=== PATIENT | male | born 1950 | race Caucasian/White ===

== ENCOUNTER 2019-06-02 19:55 | Inpatient (IN) | payer OTHER ==
[~2019-06-02] VITALS: Ht 180.3 cm; Wt 143.8 kg
--- NOTE | 2019-06-02 19:57 | NUR ---
Dr. Burnham examining patient.
[2019-06-02] MEDS ORDERED: MORPHINE SULFATE 4 MG/ML SYR IVP ONE (20:00)
[2019-06-02] MEDS ORDERED: ALBUTEROL SULFATE/IPRATROPIU 3 ML SOL IH ONE ×2 (20:00→21:00)
--- NOTE | 2019-06-02 20:03 | NUR ---
PT CAROLYNE ALS. TAKEN TO BED 1
--- NOTE | 2019-06-02 20:05 | NUR ---
Respiratory Therapist at bedside for respiratory intervention.
[2019-06-02 20:09] VITALS: BP 113/53
[2019-06-02 20:29] LABS: BASOPHILS # (AUTO) 0.1 K/uL (0.00-0.22); BASOPHILS % (AUTO) 0.7 % (0.0-2.0); EOSINOPHILS # (AUTO) 0.5 K/uL (0-0.4); EOSINOPHILS % (AUTO) 4.3 % (0.0-4.0); HEMATOCRIT 34.3 % (36-52); HEMOGLOBIN 11.1 g/dL (12.0-18.0); LYMPHOCYTES # (AUTO) 1.8 K/uL (2.0-11.5); LYMPHOCYTES % (AUTO) 16.7 % (20.5-51.1); MEAN CORPUSCULAR HEMOGLOBIN 27 pg (27-31); MEAN CORPUSCULAR HGB CONC 32 g/dL (33-37); MEAN CORPUSCULAR VOLUME 83.9 fL (80-94); MONOCYTES # (AUTO) 0.9 K/uL (0.8-1.0); MONOCYTES % (AUTO) 8.3 % (1.7-9.3); NEUTROPHILS # (AUTO) 7.4 K/uL (1.8-7.7); PLATELET COUNT (AUTO) 168 K/uL (140-450); RED CELL DISTRIBUTION WIDTH 16.3 % (11.6-13.7); WHITE BLOOD COUNT (AUTO) 10.5 K/uL (4.8-10.8)
[2019-06-02 20:50] LABS: ALBUMIN 2.8 g/dL (3.4-5.0); ANION GAP 7.9 (8-16); CARBON DIOXIDE 32.3 mmol/L (21-32); CREATININE 1.9 mg/dL (0.6-1.3); POTASSIUM 4.2 mmol/L (3.5-5.1); TOTAL BILIRUBIN 0.2 mg/dL (0.0-1.0)
--- NOTE | 2019-06-02 21:04 | NUR ---
68 Y/O MALE BIB [facility] C/O SOB/CHEST PAIN X2 HOURS. PT STATES CHEST PAIN IS SHARP SUBSTERNAL PAIN 7/10 NON RADIATING. RESP ARE SLIGHTLY LABORED, SYMMETRICAL, LUNG SOUNDS CLEAR IN BILAT LOBES. AAOX4. GCS 15. HEALING PRESSURE ULCER NOTED ON LEFT HEEL. BOWEL SOUNDS NORMOACTIVE IN ALL QUADRANTS. CAP REFILL <3. 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 PMH: COPD, HTN, DM, HYPOTHYROIDISM, ANEMIA, MUSCLE WEAKNESS ALLERGIES: LISINOPRIL
[2019-06-02 21:15] LABS: BILIRUBIN,URINE NEGATIVE (NEGATIVE); BLOOD, URINE 1+ (NEGATIVE); LEUKOCYTE ESTERASE ,URINE NEGATIVE (NEGATIVE); NITRITE, URINE NEGATIVE (NEGATIVE); PH,URINE 5.5 (5.0-9.0); UGLUCOSE TRACE (NEGATIVE)
[2019-06-02 21:17] LABS: APPEARANCE,URINE CLOUDY (CLEAR); COLOR,URINE YELLOW (YELLOW)
[2019-06-02 21:30] LABS: RBC,URINE 0-5 /HPF (0-5); URINE AMORPHOUS URATE 2+ /HPF (None Seen); WBC,URINE NONE SEEN /HPF (0-5)
[2019-06-02] MEDS ORDERED: ONDANSETRON 4 MG/2 ML VIAL IM/IVP PRN (22:10)
[2019-06-02] MEDS ORDERED: ACETAMINOPHEN 325 MG TAB PO PRN (22:10)
[2019-06-02] MEDS ORDERED: DOCUSATE SODIUM 100 MG GELCAP PO PRN (22:10)
[2019-06-02] MEDS ORDERED: [UNRECOGNIZED DRUG - CODE] PO (22:32)
[2019-06-02] MEDS ORDERED: FURO-572 PO (22:32)
[2019-06-02] MEDS ORDERED: FLUO40CA6 PO ×2 (22:32→22:52)
[2019-06-02] MEDS ORDERED: INSU100S5 IJ (22:32)
[2019-06-02] MEDS ORDERED: ACET-2619 PO (22:32)
[2019-06-02] MEDS ORDERED: BUDE1AER IH (22:32)
[2019-06-02] MEDS ORDERED: ASPI-1822 PO (22:32)
[2019-06-02] MEDS ORDERED: INSU100S22 SUBQ (22:32)
[2019-06-02] MEDS ORDERED: methylPREDNISolone SS 125 MG/2 ML VIAL IVP ONE (22:40)
[2019-06-02] MEDS ORDERED: DEXTROSE 50% 50 ML SYR IVP PRN (22:40)
[2019-06-02] MEDS ORDERED: AZITHROMYCIN 500 MG in DEXTROSE 5% 250 ML IV ONE (22:40)
--- NOTE | 2019-06-02 22:55 | NUR ---
ADMITTED 68 Y/O MALE WITH DX OF CHEST PAIN. NO SOB NOTED. ON 3L OF O2 VIA NC WITH O2 SAT OF 97%. TELE MONITOR IN PLACE. WITH IV HEPLOCK ON LAC AND LEFT HAND 20 GAUGE. INTACT AND PATENT. LEFT EYE BLINDNESS. RIGHT EYE CATARACT. RIGHT LEG AMPUTATED. LEFT TOES AMPUTATED. LOW BED AND BED ALARM ACTIVATED. CALL LIGHT WITHIN REACH. WILL CONTINUE TO MONITOR.
--- NOTE | 2019-06-02 23:00 | NUR ---
Patient will be admitted to care of [facility]. Admited to TELE. Will go to room 128A. Belongings list completed. Report to YARITZA RODRIGUEZ.
[2019-06-02 23:02] LABS: BARBITURATE, URINE NEG. ng/ml (NEG <=200); BENZODIAZEPINE, URINE NEG. ng/mL (NEG <=200); CANNABINOID, URINE NEG. ng/mL (NEG <=50); COCAINE, URINE NEG. ng/mL (NEG <=300); OPIATE, URINE NEG. ng/mL (NEG <=2000); PHENCYCLIDINE SCREEN,URINE NEG. ng/mL (NEG <=25)
[2019-06-02 23:05] LABS: PROTHROMBIN TIME 9.7 secs (10.8-13.4)
[2019-06-02] MEDS ORDERED: NITROGLYCERIN 0.4 MG TAB SL PRN (23:10)
[2019-06-02] MEDS ORDERED: NITROGLYCERIN 0.4 MG TAB SL ONE ×2 (23:10→23:12)
[2019-06-02] MEDS ORDERED: ASPIRIN 325 MG TAB PO ONE (23:15)
[2019-06-02] MEDS ORDERED: hePARIN / DEXT 5% PREMIX 250 ML IV SCH (23:30)
[2019-06-02] MEDS ORDERED: HEPARIN PER PHARMACY MC PRN (23:30)
[2019-06-02] MEDS ORDERED: AZITHROMYCIN 500 MG INJ VIAL IV ONE (23:33)
[2019-06-02] MEDS ORDERED: cefTRIAXone 500 MG VIAL ONE (23:36)
--- NOTE | 2019-06-02 23:39 | NUR ---
PATIENT IN SEMI FOWLERS POSITION. AWAKE. C/O CHEST PAIN. DR GOLD SEEN THE PATIENT AT BEDSIDE. ORDERED NITRO SL STAT. ADMINISTERED NITROGLYCERIN SL. TOLERATED WELL. NO SOB NOTED. CALL LIGHT WITHIN REACH. WILL CONTINUE TO MONITOR.
[2019-06-02] MEDS: NACL 0.9% 1,000 ML IV SCH (23:41)
--- NOTE | 2019-06-03 00:50 | NUR ---
PATIENT ASKING FOR BREATHING TX PER PATIENT HIS HAVING A HARD TIME BREATHING. CHECK PATIENT SPO2 PATIENT SATING 97% ON 3L NC O2. AUSCULTATE LUNG SOUND HEARD WHEEZES THROUGHOUT BILATERALLY. NOTIFIED RESPIRATORY FOR PATIENT REQUEST BREATHING TX. WILL CONTINUE TO MONITOR.
--- NOTE | 2019-06-03 01:35 | NUR ---
PAGED RESPIRATORY AGAIN FOR PATIENT REQUEST FOR BREATHING TX. PATIENT RR 28BPM SPO2 97% ON 3L NC O2.
[2019-06-03] MEDS: ALBUTEROL SULFATE/IPRATROPIU 3 ML SOL IH PRN ×3 (01:42→16:50)
[2019-06-03] MEDS ORDERED: MAG SULF 2000 MG/WATER PREMIX 50 ML IV ONE (03:20)
[2019-06-03 04:00] VITALS: BP 133/56
--- NOTE | 2019-06-03 05:25 | NUR ---
ADMINISTERED MAG SULFATE 2GM PER DR. GOLD'S ORDER. PER IT WILL HELP PATIENT BREATH BETTER. WILL CONTINUE TO MONITOR.
[2019-06-03] MEDS ORDERED: FUROSEMIDE 20 MG/2 ML VIAL IVP ONE (05:35)
[2019-06-03] MEDS: INSULIN LISPRO SLIDING SCALE 100 UNITS/ML VIAL SUBQ PRN ×2 (06:12→21:45)
[2019-06-03] MEDS ORDERED: LEVOTHYROXINE SODIUM 350 MCG PO SCH (06:30)
[2019-06-03 06:33] LABS: CHOL/HDL RATIO 5.5 (1-4.5)
[2019-06-03] MEDS: BLOOD GLUCOSE MONITORING 1 DEV DEV FS SCH ×4 (06:36→21:36)
--- NOTE | 2019-06-03 06:40 | NUR ---
DR. CASAS ASKED ME TO CALL RESPIRATORY TO GIVE PATIENT BREATHING TX. ASSESSED PATIENT. PATIENT IS HAVING SHORTNESS OF BREATH, RR 27BPM SPO2 96% ON 3L NC O2. CALLED RESPIRATORY AND NOTIFIED. WILL CONTINUE TO MONITOR
[2019-06-03] MEDS: ALBUTEROL SULFATE/IPRATROPIU 3 ML SOL IH SCH ×3 (07:15→19:00)
--- NOTE | 2019-06-03 07:15 | NUR ---
ENDORSEMENT GIVEN AT BEDSIDE TO AM SHIFT RN FOR CONTINUITY OF CARE. NO SOB NOTED. DENIES PAIN. PATIENT IS STABLE.
--- NOTE | 2019-06-03 07:16 | NUR ---
RECEIVED REPORT FROM ROLL TRUCKER NURSE YARITZA FOR CONTINUITY OF CARE. PT IN STABLE CONDITION. RESPIRATIONS EVEN AND UNLABORED, 02 3L VIA NC. IV INTACT AND PATENT. SAFETY MEASURES IN PLACE. BED IN LOW POSITION. BED ALARM ON. CALL LIGHT AT BEDSIDE. WILL CONTINUE TO MONITOR.
[2019-06-03] MEDS: BUDESONIDE 0.5 MG/2 ML NEBU INH SCH ×2 (07:33→19:30)
[2019-06-03 08:00] VITALS: BP 124/52
--- NOTE | 2019-06-03 08:55 | NUR ---
PATIENT HAS BEEN SCREENED AND CATEGORIZED MODERATE NUTRITION RISK. PATIENT WILL BE SEEN WITHIN 3-5 DAYS OF ADMISSION. 06/05/19 06/07/[address]
[2019-06-03] MEDS ORDERED: NON-FORMULARY ITEM (Budesonide/Formoterol Fumarate* (Symbicort 160-4.5 Mcg Inhaler*) 2 PUF IH SCH (09:00)
--- NOTE | 2019-06-03 09:12 | NUR ---
PT OFF UNIT FOR CT CHEST W/O CONTRAST. PT IN STABLE CONDITION.
--- NOTE | 2019-06-03 09:30 | NUR ---
PT BACK ON UNIT IN STABLE CONDITION. WILL CONTINUE TO MONITOR. BED IN LOW POSITION. CALL LIGHT AT BEDSIDE.
[2019-06-03] MEDS: FUROSEMIDE 20 MG TAB PO SCH ×2 (09:50→21:17)
[2019-06-03] MEDS: ASPIRIN 81 MG TAB.CHEW PO SCH (09:50)
[2019-06-03] MEDS: FLUoxetine 10 MG CAP PO SCH (09:51)
[2019-06-03] MEDS: FERROUS SULFATE 325 MG TABEC PO SCH ×2 (09:52→17:18)
--- NOTE | 2019-06-03 09:52 | NUR ---
QUIANA HALE AT BEDSIDE FOR CONSULTATION. PT IN STABLE CONDITION.
[2019-06-03 10:03] LABS: BASOPHILS % (AUTO) 0.2 % (0.0-2.0); EOSINOPHILS % (AUTO) 0.2 % (0.0-4.0); HEMATOCRIT 32.8 % (36-52); HEMOGLOBIN 10.6 g/dL (12.0-18.0); LYMPHOCYTES # (AUTO) 0.3 K/uL (2.0-11.5); LYMPHOCYTES % (AUTO) 2.6 % (20.5-51.1); MEAN CORPUSCULAR HEMOGLOBIN 28 pg (27-31); MEAN CORPUSCULAR HGB CONC 32 g/dL (33-37); MEAN CORPUSCULAR VOLUME 85.2 fL (80-94); MONOCYTES # (AUTO) 0.1 K/uL (0.8-1.0); NEUTROPHILS # (AUTO) 9.4 K/uL (1.8-7.7); PLATELET COUNT (AUTO) 144 K/uL (140-450); RED BLOOD CELL COUNT(AUTO) 3.85 MIL/uL (4.20-6.10); WHITE BLOOD COUNT (AUTO) 9.8 K/uL (4.8-10.8)
[2019-06-03] MEDS: HYDRAGUARD CREAM TP SCH (10:05)
[2019-06-03 11:25] LABS: ANION GAP 17.1 (8-16); CARBON DIOXIDE 24.2 mmol/L (21-32); CREATININE 2.4 mg/dL (0.6-1.3); MAGNESIUM 1.8 mg/dL (1.8-2.4); PHOSPHORUS 2.5 mg/dL (2.5-4.9); POTASSIUM 5.3 mmol/L (3.5-5.1)
--- NOTE | 2019-06-03 11:33 | NUR ---
CHANGED AFTER URINATION. PT TOLERATED WELL. BED IN LOW POSITION. BED ALARM ON. CALL LIGHT AT BEDSIDE. WILL CONTINUE TO MONITOR.
[2019-06-03 12:00] VITALS: BP 132/49
--- NOTE | 2019-06-03 13:00 | NUR ---
PT EATING LUNCH AT THIS TIME. PT ORIENTED TO TRAY. BED IN LOW POSITION. BED ALARM ON. CALL LIGHT AT BEDSIDE. WILL CONTINUE TO MONITOR.
[2019-06-03 15:42] LABS: FREE T4 (FREE THYROXINE) 1.04 ng/dL (0.76-1.46); MAGNESIUM 1.9 mg/dL (1.8-2.4); PHOSPHORUS 2.5 mg/dL (2.5-4.9); THYROID STIMULATING HORMONE 2.02 uIU/mL (0.34-3.74)
[2019-06-03 16:00] VITALS: BP 139/52
[2019-06-03] MEDS ORDERED: SODIUM ZIRCONIUM CYCLOSILICATE 10 GM POWD.PACK PO SCH (16:00)
--- NOTE | 2019-06-03 16:40 | NUR ---
CALLED RT PER PT REQUEST FOR BREATHING TREATMENT. RT AT BEDSIDE. PT IN STABLE CONDITION.
--- NOTE | 2019-06-03 18:10 | NUR ---
PT LYING IN BED IN STABLE CONDITION. BED IN LOW POSITION. BED ALARM ON. CALL LIGHT AT BEDSIDE. WILL CONTINUE TO MONITOR.
--- NOTE | 2019-06-03 19:25 | NUR ---
GAVE REPORT TO CLAM PICKER NURSE TAYO FOR CONTINUITY OF CARE. PT IN STABLE CONDITION.
--- NOTE | 2019-06-03 19:35 | NUR ---
PATIENT OUT OF UNIT AT THIS TIME. PER RN, PATIENT IS IN RADIOLOGY. WILL RETURN AT LATER TIME FOR SCHEDULED BREATHING TREATMENT.
[2019-06-03 19:49] LABS: ANION GAP 10.4 (8-16); CARBON DIOXIDE 29.6 mmol/L (21-32); CREATININE 2.3 mg/dL (0.6-1.3)
[2019-06-03 20:00] VITALS: BP 139/66
--- NOTE | 2019-06-03 20:20 | NUR ---
BACK FROM RADIOLOGY VIA ON HIS OWN BED IN NO ACUTE DISTRESS.DENIES ANY DISCOMFORT @ THIS TIME.CONNECTED HIS IVF NS @ 40 ML/HR,INFUSING WELL ON HIS RIGHT HAND.A/A/O X4 BUT FORGETFUL.NOTED WITH CALEB.LEFT LEG WITH DISCOLORATION & ALL TOES WERE OLD AMPUTEE.INSTRUCTED TO USE CALL LIGHT NEEDED;WITHIN REACH.SIDE RAILS UP X3.
[2019-06-03] MEDS: ATORVASTATIN 20 MG TAB PO SCH (21:24)
[2019-06-03] MEDS: NACL 0.9% 1,000 ML IV SCH (21:29)
--- NOTE | 2019-06-03 21:35 | NUR ---
FINGER STICK BLD SUGAR 274.HUMOLOG 7 UNITS SUB Q ADM. SNACKS GIVEN.IVF INC TO 70 ML/HR INFUSING WELL.
[2019-06-03] MEDS: INSULIN LANTUS 100 UNITS/ML 10 ML VIAL SUBQ SCH (21:51)
--- NOTE | 2019-06-03 22:20 | NUR ---
BLADDER SCAN 320.
--- NOTE | 2019-06-03 22:50 | NUR ---
RETURNED FOR BREATHING TREATMENT. PATIENT SLEEPING COMFORTABLY. TREATMENT NOT ADMINISTERED AT THIS TIME. NO SIGNS OF DISTRESS. ON 3L NASAL CANNULA, PULSE OX SAT 96%. NO ACUTE RESPIRATORY DISTRESS NOTED. WILL CONTINUE TO MONITOR.
[2019-06-03] MEDS ORDERED: methylPREDNISolone SS 125 MG/2 ML VIAL IVP SCH (23:00)
[2019-06-03] MEDS: AZITHROMYCIN 250 MG in DEXTROSE 5% 250 ML IV SCH (23:14)
--- NOTE | 2019-06-03 23:35 | NUR ---
NOTIFIED DR. MIMS OF THE BLADDER SCAN.STATED TO ASK PT WANTS F/C OR ONE TIME IN & OUT CATH.
--- NOTE | 2019-06-03 23:45 | NUR ---
RELAYED TO DR. MIMS ,PT REFUSED F/C & IN & OUT CATH " PT STATED HAD ONCE BEFORE & DON'T WANT IN & OUT CATH.
[2019-06-04] VITALS: BP 135/65
--- NOTE | 2019-06-04 02:00 | NUR ---
RESTING COMFORTABLY IN NO ACUTE DISTRESS.TELE SHOWED SR.
[2019-06-04 04:00] VITALS: BP 152/73
--- NOTE | 2019-06-04 04:00 | NUR ---
RESTING COMFORTABLY.AFEBRILE.BP 152/73.TELE SHOWED SR.
[2019-06-04] MEDS: methylPREDNISolone SS 40 MG/ML VIAL IVP SCH ×3 (05:04→22:22)
[2019-06-04] MEDS: BLOOD GLUCOSE MONITORING 1 DEV DEV FS SCH ×4 (06:25→21:54)
[2019-06-04] MEDS: INSULIN LISPRO SLIDING SCALE 100 UNITS/ML VIAL SUBQ PRN ×3 (06:28→17:05)
--- NOTE | 2019-06-04 06:28 | NUR ---
FINGER STICK BLD SUGAR 302.HUMULOG 9 UNITS SUB Q ADM .
--- NOTE | 2019-06-04 06:45 | NUR ---
ENDORSED IN NO ACUTE DISTRESS.IVF INFUSING WELL.SAFETY MAINTAINED.NO S/S/ OF HYPO/HYPERGLYCEMIA NOTED OVER 12 HRS.
[2019-06-04 06:56] LABS: BASOPHILS % (AUTO) 0.2 % (0.0-2.0); EOSINOPHILS % (AUTO) 0.1 % (0.0-4.0); HEMATOCRIT 32.5 % (36-52); HEMOGLOBIN 10.6 g/dL (12.0-18.0); LYMPHOCYTES # (AUTO) 0.5 K/uL (2.0-11.5); LYMPHOCYTES % (AUTO) 4.1 % (20.5-51.1); MEAN CORPUSCULAR HEMOGLOBIN 27 pg (27-31); MEAN CORPUSCULAR HGB CONC 33 g/dL (33-37); MEAN CORPUSCULAR VOLUME 83.8 fL (80-94); MONOCYTES # (AUTO) 0.2 K/uL (0.8-1.0); MONOCYTES % (AUTO) 1.8 % (1.7-9.3); NEUTROPHILS # (AUTO) 12.2 K/uL (1.8-7.7); NEUTROPHILS % (AUTO) 93.8 % (42.2-75.2); PLATELET COUNT (AUTO) 183 K/uL (140-450); RED BLOOD CELL COUNT(AUTO) 3.88 MIL/uL (4.20-6.10); RED CELL DISTRIBUTION WIDTH 16.4 % (11.6-13.7)
[2019-06-04 07:04] LABS: ANION GAP 9.5 (8-16); CARBON DIOXIDE 29.2 mmol/L (21-32); CREATININE 2.2 mg/dL (0.6-1.3); POTASSIUM 4.7 mmol/L (3.5-5.1)
[2019-06-04 07:06] LABS: PHOSPHORUS 2.7 mg/dL (2.5-4.9)
[2019-06-04] MEDS: ALBUTEROL SULFATE/IPRATROPIU 3 ML SOL IH SCH ×3 (07:18→20:24)
--- NOTE | 2019-06-04 07:18 | NUR ---
AWAKE AND ALERT VERBALLY RESPONSIVE C/O OF NASAL DRYNESS WITH SUPPLEMENTAL OXYGEN USE POST HHN THERAPY ADDED HUMIDIFIER
[2019-06-04] MEDS: BUDESONIDE 0.5 MG/2 ML NEBU INH SCH ×2 (07:19→20:25)
--- NOTE | 2019-06-04 07:19 | NUR ---
RECEIVED REPORT FROM WHEAT SHIPPER NURSE. PATIENT LYING DOWN IN BED SLEEPING, AROUSBLE BY VOICE. NO DISTRESS NOTED. DENIES ANY PAIN. AAOX4, CALM, COOPERATIVE, LEGALLY BLIND, SKIN COLOR APPROPRIATE TO ETHNICITY, WARM TO TOUCH. SKIN INTACT, HAS REDNESS IN PERINEAL ARREA, HYDRAGAURD CREAM APPLIED ALREADY. IV SITE INTACT, PATENT, AND INFUSING IVF PER MD ORDERS. RESPIRATIONS EVEN, UNLABORED, ON O2 3L/MIN VIA NC. REVIEWED PLAN OF CARE WITH PATIENT. PATIENT VERBALIZED UNDERSTANDING. SAFETY MEASURES IN PLACE, CALL LIGHT WITHIN REACH. WILL CONTINUE TO MONITOR.
[2019-06-04 08:00] VITALS: BP 136/56
[2019-06-04] MEDS ORDERED: methylPREDNISolone SS 40 MG/ML VIAL IVP SCH (09:00)
[2019-06-04] MEDS: ASPIRIN 81 MG TAB.CHEW PO SCH (09:21)
[2019-06-04] MEDS: FERROUS SULFATE 325 MG TABEC PO SCH ×2 (09:21→17:05)
[2019-06-04] MEDS: HYDRAGUARD CREAM TP SCH (09:22)
[2019-06-04] MEDS: FUROSEMIDE 20 MG TAB PO SCH ×2 (09:22→21:53)
[2019-06-04] MEDS: NACL 0.9% 1,000 ML IV SCH (09:22)
[2019-06-04] MEDS: FLUoxetine 10 MG CAP PO SCH (09:22)
--- NOTE | 2019-06-04 09:26 | NUR ---
PATIENT SITTING DOWN IN BED, NO DISTRESS NOTED. SCHEDULED MEDICATIONS DUE GIVEN. PATIENT REFUSED HEPARIN SUBQ . WILL CONTINUE TO MONITOR.
[2019-06-04 10:17] LABS: FOLIC ACID 11.7 ng/mL (>3.0)
--- NOTE | 2019-06-04 12:03 | NUR ---
*S.T. Bedside Swallow Eval completed* See report for details. Pt presents w/ mild oral difficulty managing solids due to being edentulous. Pt is able to gum up solids slowly w/ minimal lingual residue after swallows. With assist w/ tray set up and verbally describing where items are on tray table, pt is able to self-feed w/o difficulty. Recommend: 1) Continue regular diet, thin liquids. Straws okay. 2) P.O. meds okay whole, one at a time. 3) Nsg to assist w/ tray set up and verbally description to pt of where each item is (e.g., juice is at 3 o'clock and meat is at 6 o'clock, etc.) 4) No further tx indicated at this time as pt is functioning at his reported baseline. DC to [facility]. Endorsed to JENNIFER Ramirez. Time [id number]
[2019-06-04] MEDS: MUPIROCIN CA NASAL 2% 1GM TUBE NS SCH (12:49)
[2019-06-04] MEDS: CHLORHEXADINE GLUC 2% CLOTH TP SCH (12:49)
--- NOTE | 2019-06-04 12:49 | NUR ---
PATIENT SITTING DOWN IN BED WITH LUNCH TRAY. NO DISTRESS NOTED. DENIES ANY PAIN. SCHEDULED MEDICATIONS DUE GIVEN. WILL CONTINUE TO MONITOR.
--- NOTE | 2019-06-04 13:37 | NUR ---
ULTRASOUND PROCEDURE IN PROGRESS NO SOB NOTED EMBROIDERY CUTTER TO ATTEMPT HHN THERAPY AND RESPIRATORY DRUG AT A LATER TIME
--- NOTE | 2019-06-04 14:00 | NUR ---
DISCHARGE PLANNING: THIS IS A 68 Y/O MALE PATIENT [place] [facility] BROUGHT IN DUE TO CHEST PRESSURE. 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 INITIAL DIAGNOSIS OF CHEST PAIN. CURRENT LABS INCLUDE WBC 13.0, H/H 10.6/32.5, NA/K 134/4.7, BUN/CREA 66/22 AND D DIMER 613. ON AZITHROMYCIN, ROCEPHIN AND SOLU MEDROL. CARDIO, PULMO AND NEPHRO CONSULTS IN PLACE. DC PLAN BACK TO [facility] ONCE STABLE.
[2019-06-04 16:00] VITALS: BP 154/64
--- NOTE | 2019-06-04 17:05 | NUR ---
PATIENT SITTING DOWN IN BED, NO DISTRESS NOTED. DENIES ANY PAIN. SCHEDULED MEDICATIONS DUE GIVEN. WILL CONTINUE TO MONITOR.
[2019-06-04] MEDS ORDERED: LOVENOX 1MG/KG Q24H SUBQ SCH (18:40)
--- NOTE | 2019-06-04 19:15 | NUR ---
GAVE REPORT TO SECURITY CHIEF MUSEUM NURSE FOR CONTINUITY OF CARE. PATIENT IN STABLE CONDITION.
--- NOTE | 2019-06-04 19:16 | NUR ---
RECD. RESTING ON BED, AWAKE, A/OX4, LEGALLY BLIND. RESPIRATION EVEN AND UNLABORED. ON O2 AT 2 LITERS VIA N/C, SATURATING AT 96%. IV OF NS AT 70 ML/HR INFUSING, LEFT HAND G22. BEDBOUND, RIGHT BKA, LEFT TRANSMETATARSAL AMPUTATION. SAFETY MEASURES ENFORCED. BED IN THE LOWEST POSITION, CALL LIGHT IN REACH. PLAN OF CARE FOR THE SHIFT DISCUSSED. VERBALIZED UNDERSTANDING. DENIES PAIN 0/10.
--- NOTE | 2019-06-04 20:55 | NUR ---
DUE PO MEDICATIONS GIVEN. ATE 100% OF SNACK FOR THE NIGHT.
--- NOTE | 2019-06-04 21:45 | NUR ---
ORDERED SOLUMEDROL GIVEN IVP AT BEDSIDE, MEDICATION EDUCATION INCLUDING SIDE EFFECTS PROVIDED TO PT AT BEDSIDE.
[2019-06-04] MEDS: ATORVASTATIN 20 MG TAB PO SCH (21:53)
[2019-06-04] MEDS: INSULIN LANTUS 100 UNITS/ML 10 ML VIAL SUBQ SCH (22:00)
[2019-06-04] MEDS ORDERED: INSULIN REGULAR, HUMAN 100 UNIT/ML VIAL SUBQ SCH (22:00)
--- NOTE | 2019-06-04 22:15 | NUR ---
CARE PLAN DISCUSSED AND REVIEWED WITH SOLIS RODRIGUEZ LVN.
--- NOTE | 2019-06-04 22:40 | NUR ---
PT GIVEN ORDERED ROCEPHIN IV ABT. EDUCATION REGARDING MEDICATION PROVIDED AT BEDSIDE, INCLUDING SIDE EFFECTS PT ACKNOWLEDGED UNDERSTANDING.
--- NOTE | 2019-06-04 23:00 | NUR ---
ORDERED IV ABT ZITHROMAX HUNG AND RUNNING ORDERED. PT EDUCATION REGARDING MEDICATION AND SIDE EFFECTS PROVIDED AT BEDSIDE, PT VERBALIZED ACKNOWLEDGMENT, ALL REQUESTED NEEDS ATTENDED BY STAFF. ALL FALLS AND CONTACT PRECAUTIONS IN PLACE.
[2019-06-04] MEDS ORDERED: AZITHROMYCIN 500 MG INJ VIAL IV ONE (23:07)
[2019-06-04] MEDS: AZITHROMYCIN 250 MG in DEXTROSE 5% 250 ML IV SCH (23:20)
[2019-06-05] VITALS: BP 129/49
--- NOTE | 2019-06-05 01:00 | NUR ---
STILL AWAKE, REQUESTED TO TEA. ADVISED TO GO TO SLEEP AFTER TAKING DECAFF TEA.
--- NOTE | 2019-06-05 02:00 | NUR ---
STILL AWAKE, OFFERED TO CALL MD FOR SLEEPING PILL BUT REFUSED.
[2019-06-05] MEDS: NACL 0.9% 1,000 ML IV SCH ×3 (02:37→22:44)
--- NOTE | 2019-06-05 03:00 | NUR ---
RESTING IN BED, STILL AWAKE. ENCOURAGED TO GO TO SLEEP, STATED HE IS A PERSON WHO IS ALWAYS AWAKE AT NIGHT.
[2019-06-05] MEDS: methylPREDNISolone SS 40 MG/ML VIAL IVP SCH ×3 (05:46→21:47)
[2019-06-05 06:21] LABS: BASOPHILS % (AUTO) 0.1 % (0.0-2.0); HEMATOCRIT 32.4 % (36-52); HEMOGLOBIN 10.5 g/dL (12.0-18.0); LYMPHOCYTES # (AUTO) 0.6 K/uL (2.0-11.5); LYMPHOCYTES % (AUTO) 4.5 % (20.5-51.1); MEAN CORPUSCULAR HEMOGLOBIN 27 pg (27-31); MEAN CORPUSCULAR HGB CONC 33 g/dL (33-37); MEAN CORPUSCULAR VOLUME 83.7 fL (80-94); MONOCYTES # (AUTO) 0.5 K/uL (0.8-1.0); MONOCYTES % (AUTO) 3.6 % (1.7-9.3); NEUTROPHILS # (AUTO) 12.1 K/uL (1.8-7.7); NEUTROPHILS % (AUTO) 91.8 % (42.2-75.2); PLATELET COUNT (AUTO) 160 K/uL (140-450); RED BLOOD CELL COUNT(AUTO) 3.86 MIL/uL (4.20-6.10); RED CELL DISTRIBUTION WIDTH 16.7 % (11.6-13.7); WHITE BLOOD COUNT (AUTO) 13.2 K/uL (4.8-10.8)
[2019-06-05] MEDS ORDERED: LOVENOX 1MG/KG Q24H SUBQ SCH (06:25)
[2019-06-05 07:03] LABS: ANION GAP 12.9 (8-16); CREATININE 2.3 mg/dL (0.6-1.3); POTASSIUM 4.9 mmol/L (3.5-5.1)
[2019-06-05 07:04] LABS: MAGNESIUM 1.9 mg/dL (1.8-2.4); PHOSPHORUS 2.6 mg/dL (2.5-4.9)
[2019-06-05] MEDS: BLOOD GLUCOSE MONITORING 1 DEV DEV FS SCH ×4 (07:11→21:55)
[2019-06-05] MEDS: INSULIN LISPRO SLIDING SCALE 100 UNITS/ML VIAL SUBQ PRN ×4 (07:13→22:03)
--- NOTE | 2019-06-05 07:20 | NUR ---
RECEIVED PT FROM THE PIPE PRODUCTION WORKER NURSE. PT IS AWAKE AND ORIENTED. PT IS COMPLETELY BLIND IN L EYE AND LEGALLY BLIND IN R EYE. PER PT, CAN SEE SHADOWS IN R EYE. PT HAS AN IV ON R AC 20G SL AND R HAND 20G NS AT 70ML INFUSING. SKIN INTACT. R BKA AND ON L FOOT NO TOES. LEGS ARE ELEVATED WITH PILLOWS. PT DOES NOT COMPLAIN OF ANY PAIN OR DISCOMFORT. PT IS BEDBOUND. WILL KEEP REPOSITIONING PT.
[2019-06-05 08:00] VITALS: BP 165/71
[2019-06-05] MEDS ORDERED: LEVOTHYROXINE 0.1 MG TAB ONE (08:23)
[2019-06-05] MEDS ORDERED: LEVOTHYROXINE 0.05 MG TAB ONE (08:23)
[2019-06-05] MEDS: ALBUTEROL SULFATE/IPRATROPIU 3 ML SOL IH SCH ×3 (08:26→20:44)
[2019-06-05] MEDS: BUDESONIDE 0.5 MG/2 ML NEBU INH SCH ×2 (08:26→20:44)
[2019-06-05] MEDS: ASPIRIN 81 MG TAB.CHEW PO SCH (08:29)
[2019-06-05] MEDS: FERROUS SULFATE 325 MG TABEC PO SCH ×2 (08:29→16:34)
[2019-06-05] MEDS: LEVOTHYROXINE PO SCH ×2 (08:29)
[2019-06-05] MEDS: FUROSEMIDE 20 MG TAB PO SCH ×2 (08:30→21:51)
[2019-06-05] MEDS: FLUoxetine 10 MG CAP PO SCH (08:30)
[2019-06-05] MEDS: HYDRAGUARD CREAM TP SCH (08:31)
--- NOTE | 2019-06-05 08:31 | NUR ---
ADMINISTERED MORNING MEDS PT TOLERATED WELL. WILL CONTINUE TO MONITOR PT.
[2019-06-05] MEDS ORDERED: ENOXAPARIN 40 MG/0.4 ML SYR SUBQ SCH ×2 (10:19→21:00)
[2019-06-05] MEDS ORDERED: ENOXAPARIN 100 MG/ML SYR SUBQ SCH ×2 (10:19→21:00)
--- NOTE | 2019-06-05 10:20 | NUR ---
PT BEING CLEANED AND CHANGED. ADMINISTERED LOVENOX AND INSULIN COVERAGE. PT TOLERATED WELL. WILL CONTINUE TO MONITOR PT.
--- NOTE | 2019-06-05 11:10 | NUR ---
PT GAVE VERBAL CONSENT W/ 2 WITNESSES. 2 RN SIGNED THE CONSENT FOR PT. ANSWERED ALL QUESTIONS.
[2019-06-05] MEDS: MUPIROCIN CA NASAL 2% 1GM TUBE NS SCH (11:41)
[2019-06-05] MEDS: CHLORHEXADINE GLUC 2% CLOTH TP SCH (11:45)
--- NOTE | 2019-06-05 13:10 | NUR ---
PT TAKEN TO RADIOLOGY FOR CT ANGIO/SPIRAL W/ CONTRAST TO R/O PE.
[2019-06-05 16:00] VITALS: BP 150/58
--- NOTE | 2019-06-05 16:35 | NUR ---
BS CHECK AT 382, GAVE 12 UNITS HUMALOG. ADMINISTERED FERROUS SULFATE. PT TOLERATED WELL. WATCHING TV. NO SIGNS OF DISTRESS. WILL CONTINUE TO MONITOR PT.
--- NOTE | 2019-06-05 19:14 | NUR ---
ENDORSED PT TO THE STOCK GRADER RN. PT IS IN STABLE CONDITION.
--- NOTE | 2019-06-05 19:15 | NUR ---
RECD. RESTING IN BED, SLEEPING COMFORTABLY BUT EASILY AROUSABLE, A/OX4. LEGALLY BLIND. RESPIRATION EVEN AND UNLABORED. ON 02 AT 2 LITERS N/C. IV OF NS AT 70 ML/HR INFUSING, LEFT HAND G22. BEDBOUND, INCONTINENT, RIGHT BKA. SAFETY MEASURES ENFORCED. BED IN THE LOWEST POSITION. SIDE RAILS UP, BED ON ALARM. CALL LIGHT IN REACH. NO APPEARANCE OF DISTRESS OR PAIN NOTED 0/10.
--- NOTE | 2019-06-05 19:15 | NUR ---
Patient's Plan of Care was discussed and reviewed with DAKOTA: SOLIS. WILL CONTINUE TO MONITOR.
--- NOTE | 2019-06-05 20:51 | NUR ---
RECEIVED PT FROM AM SHIFT. PT IS NO APPARENT RESPIRATORY DISTRESS AT THIS TIME: HR 75, RR 16, SPO2 96% ON 2L NC, AND A DIMINISHED BREATH SOUNDS WHICH IMPROVED TO CLEAR AFTER HHN TX. NO ADVERSE REACTION DURING HHN TX. WILL CONTINUE TO MONITOR PT.
[2019-06-05] MEDS ORDERED: INSULIN LANTUS 100 UNITS/ML 10 ML VIAL SUBQ SCH (21:00)
--- NOTE | 2019-06-05 21:30 | NUR ---
AWAKE, RESTING IN BED. CLEANSED BY CNAs AND MADE COMFORTABLE IN BED WITH PILLOWS.
--- NOTE | 2019-06-05 21:47 | NUR ---
ADMINISTERED JOCELIN SOLU-MEDROL AND IVPB ROCEPHIN. EDUCATED PT ON MEDICATION AND POSSIBLE S/E. EDUCATED PT ON IMPORTANCE OF DIET D/T SOLU-MEDROL WILL INCREASE HIS BLOOD SUGAR PT VERBALIZED UNDERSTANDING. CNAs AT BEDSIDE WILL CLEAN PATIENT. CALL LIGHT IS WITHIN REACH. WILL CONTINUE TO MONITOR.
[2019-06-05] MEDS: ATORVASTATIN 20 MG TAB PO SCH (21:50)
--- NOTE | 2019-06-05 21:55 | NUR ---
DUE PO MEDICATIONS GIVEN. SNACK FOR THE NIGHT GIVEN. ATE 100%.
[2019-06-05] MEDS: AZITHROMYCIN 250 MG in DEXTROSE 5% 250 ML IV SCH (22:58)
--- NOTE | 2019-06-05 22:58 | NUR ---
JOCELIN ZITHROMAX NOW INFUSING PER ORDERS. PT IS SLEEPING COMFORTABLY IN BED WITH EYES CLOSED. CHEST RISE AND FALL NOTED. CALL LIGHT IS WITHIN REACH.
[2019-06-06] VITALS: BP 159/59
--- NOTE | 2019-06-06 | NUR ---
ASSISTED TWICE TO GET THE RIGHT CHANNEL IN THE TV.
--- NOTE | 2019-06-06 02:30 | NUR ---
COMPLAINT OF SOB, RT GAVE BREATHING TREATMENT.
[2019-06-06] MEDS: ALBUTEROL SULFATE/IPRATROPIU 3 ML SOL IH PRN (02:40)
--- NOTE | 2019-06-06 04:00 | NUR ---
SLEEPING COMFORTABLY IN BED.
--- NOTE | 2019-06-06 06:00 | NUR ---
AWAKE, ASSISTED TO FIND CHANNEL IN THE TV CONTROL.
[2019-06-06] MEDS: methylPREDNISolone SS 40 MG/ML VIAL IVP SCH ×2 (06:04→12:30)
[2019-06-06] MEDS: NACL 0.9% 1,000 ML IV SCH (06:36)
[2019-06-06 06:53] LABS: ANION GAP 11.3 (8-16); CREATININE 2.2 mg/dL (0.6-1.3); POTASSIUM 4.3 mmol/L (3.5-5.1)
[2019-06-06 06:54] LABS: MAGNESIUM 1.7 mg/dL (1.8-2.4)
[2019-06-06 07:00] LABS: BASOPHILS % (AUTO) 0.1 % (0.0-2.0); HEMATOCRIT 32.7 % (36-52); HEMOGLOBIN 10.4 g/dL (12.0-18.0); LYMPHOCYTES # (AUTO) 0.5 K/uL (2.0-11.5); LYMPHOCYTES % (AUTO) 5.1 % (20.5-51.1); MEAN CORPUSCULAR HEMOGLOBIN 28 pg (27-31); MEAN CORPUSCULAR HGB CONC 32 g/dL (33-37); MEAN CORPUSCULAR VOLUME 86.7 fL (80-94); MONOCYTES # (AUTO) 0.6 K/uL (0.8-1.0); MONOCYTES % (AUTO) 6.3 % (1.7-9.3); NEUTROPHILS # (AUTO) 8.7 K/uL (1.8-7.7); NEUTROPHILS % (AUTO) 88.5 % (42.2-75.2); PLATELET COUNT (AUTO) 157 K/uL (140-450); RED BLOOD CELL COUNT(AUTO) 3.77 MIL/uL (4.20-6.10); RED CELL DISTRIBUTION WIDTH 16.8 % (11.6-13.7); WHITE BLOOD COUNT (AUTO) 9.8 K/uL (4.8-10.8)
[2019-06-06] MEDS: INSULIN LISPRO SLIDING SCALE 100 UNITS/ML VIAL SUBQ PRN ×3 (07:10→17:07)
[2019-06-06] MEDS: ALBUTEROL SULFATE/IPRATROPIU 3 ML SOL IH SCH ×2 (07:20→13:34)
[2019-06-06] MEDS: BUDESONIDE 0.5 MG/2 ML NEBU INH SCH (07:20)
--- NOTE | 2019-06-06 07:20 | NUR ---
CONDITION REMAIN STABLE. ENDORSED TO AM SHIFT NURSE FOR CONTINUITY OF CARE.
--- NOTE | 2019-06-06 07:41 | NUR ---
RECEIVED PT FROM ROAD HOGGER OPERATOR FOR CONTINUITY OF CARE. PT IN STABLE CONDITION AT THIS TIME. PT AAOX4. ON 2L NC SATING 97%. DISCUSSED POC WITH PT AND PT VERBALIZED UNDERSTANDING OF TEACHING. ALL NEEDS MET AT THIS TIME. WILL ROUND FREQUENTLY ON PT.
[2019-06-06] MEDS: BLOOD GLUCOSE MONITORING 1 DEV DEV FS SCH ×3 (07:49→16:44)
[2019-06-06 08:00] VITALS: BP 146/56
[2019-06-06] MEDS ORDERED: MAG SULF 2000 MG/WATER PREMIX 50 ML IV SCH (08:30)
[2019-06-06] MEDS ORDERED: LEVOTHYROXINE 0.05 MG TAB ONE (08:42)
[2019-06-06] MEDS ORDERED: LEVOTHYROXINE 0.1 MG TAB ONE (08:43)
[2019-06-06] MEDS: HYDRAGUARD CREAM TP SCH (08:45)
[2019-06-06] MEDS: FLUoxetine 10 MG CAP PO SCH (08:45)
[2019-06-06] MEDS: FERROUS SULFATE 325 MG TABEC PO SCH ×2 (08:46→17:03)
[2019-06-06] MEDS: ASPIRIN 81 MG TAB.CHEW PO SCH (08:47)
[2019-06-06] MEDS: FUROSEMIDE 20 MG TAB PO SCH (08:47)
[2019-06-06] MEDS: LEVOTHYROXINE PO SCH ×2 (08:47)
[2019-06-06] MEDS ORDERED: ENOXAPARIN 40 MG/0.4 ML SYR SUBQ SCH (09:00)
[2019-06-06] MEDS ORDERED: MAGNESIUM OXIDE 400 MG TAB PO ONE (09:05)
--- NOTE | 2019-06-06 09:12 | NUR ---
ADMIN MORNIGN MEDS. PT TOLERATED WELL. ALL NEEDS MET.
[2019-06-06] MEDS ORDERED: METH4TAB1 PO (10:40)
[2019-06-06] MEDS ORDERED: CHLO118S2 TP (10:40)
[2019-06-06] MEDS ORDERED: LACT10CA1 PO (10:40)
[2019-06-06] MEDS ORDERED: ROC1PM IV (10:40)
[2019-06-06] MEDS ORDERED: INSU100S22 SUBQ (10:40)
[2019-06-06] MEDS ORDERED: MUPI2CRE22 NS (10:40)
[2019-06-06] MEDS ORDERED: AZIT250T3 PO (10:40)
[2019-06-06] MEDS: CHLORHEXADINE GLUC 2% CLOTH TP SCH (11:00)
[2019-06-06] MEDS: MUPIROCIN CA NASAL 2% 1GM TUBE NS SCH (11:00)
--- NOTE | 2019-06-06 11:20 | NUR ---
1045: RECEIVED AN ORDER FOR DC BACK TO [facility] FOR CONTINUED ANTIBIOTICS: ROCEPHIN IV AND PO AZITHROMYCIN X3 MORE DAYS. MET WITH THE PATIENT AT THE BEDSIDE, CLAUDIO X4, ABLE TO MAKE HIS NEEDS KNOWN, TO DISCUSS DC PLANNING AND IS IN AGREEMENT TO GO BACK TO [facility]. I ASKED HIM IF HE WANTS ME TO CALL ANY FAMILY MEMBER TO INFORM THAT HE IS GOING BACK, HE ANSWERED NO. IM AND CHOICE OF VENDOR LETTER DISCUSSED WITH HIM, ABLE TO VERBALIZE UNDERSTANDING. HE STATED HE CAN SIGN IT HOWEVER HE NEEDS ASSISTANCE WHERE TO SIGN. I ASSISTED HIM. COPIES PLACED IN THE CHART. CLINICALS FAX TO [facility]. 1124: PER BOAZ [facility], THEY ARE ABLE TO TAKE THE PATIENT BACK AND [facility] SHE STATED SHE WILL SET UP TRANSPORT WELL AND WILL CALL ME BACK WITH ETA. PRIMARY RN BLAISE, CHARGE NURSE AND DR. PARKER MADE AWARE. Addendum: 06/06/19 at 1348 by Lazara Rossi CM PER BOAZ GALLARDO [facility], STUDIO COUCH FRAME BUILDER WILL BE AT 1400 WITH [facility] [employer] TRANSPORT. PRIMARY RN AND CHARGE NURSE MADE AWARE. DR. PARKER MADE AWARE WELL. Addendum: 06/06/19 at 1416 by Lazara Rossi CM I WAS INFORMED BY PRIMARY JENNIFER WELSH, THAT PATIENT'S BLOOD SUGAR IS 403 AND RECHECKED 407. 10 UNITS OF INSULIN WAS GIVEN. DR. PARKER IS AWARE AND WANTED THE PATIENT'S BLOOD SUGAR STABILIZED FIRST PRIOR TO TRANSFER. BOAZ OF [facility] MADE AWARE AND WILL RESCHED STUDIO COUCH FRAME BUILDER AT A LATER TIME. PRIMARY RN MADE AWARE. Addendum: 06/06/19 at 1625 by Lazara Rossi CM PER PRIMARY JENNIFER WELSH BS IS STILL HIGH 397. I INFORMED HER IF SHE CAN CONTACT [facility] AT [phone], IF DC PLAN CHANGES. SINCE THEY ARE THE ONE SETTING UP TRANSPORT.
--- NOTE | 2019-06-06 11:24 | NUR ---
PT RESTING IN BED. ALL NEEDS MET.
--- NOTE | 2019-06-06 13:34 | NUR ---
PATIENT IN DISCHARGE PROCESS SATURATION 96% ON SUPPLEMENTAL OXYGEN AT 2 LPM VIA NC POST HHN THERAPY PLACED ON ROOM AIR PET TRAINING INSTRUCTOR TO MONITOR BLAISE/RN AT BEDSIDE AND AWARE
--- NOTE | 2019-06-06 13:40 | NUR ---
PT WATCHING TV. DRINKING TEA. ALL NEEDS MET,.
--- NOTE | 2019-06-06 13:41 | NUR ---
PT BS AT 407. AWARE. D/C POSTPONED UNTIL PT BS IS CONTROLLED. PROJECT EXECUTIVE IOANA MADE AWARE.
[2019-06-06] MEDS ORDERED: INSULIN LISPRO 100 UNITS/ML VIAL SUBQ SCH (14:07)
--- NOTE | 2019-06-06 15:48 | NUR ---
PT ASLEEP. ALL NEEDS MET. WILL CONTINUE TO ROUND ON PT .
[2019-06-06 16:00] VITALS: BP 116/49
--- NOTE | 2019-06-06 16:48 | NUR ---
RADHA WITH IOANA DRESSER TENDER. NEW PICKUP TIME SCHEDULED BY [facility]. PT PICKUP IS BETWEEN [phone].
--- NOTE | 2019-06-06 17:17 | NUR ---
PT RESTING IN BED. ALL NEEDS MET.
--- NOTE | 2019-06-06 19:15 | NUR ---
PT DISCHARGED TO [facility] FOR CONTINUITY OF CARE. PT DISCHARGE TEACHING DISCUSSED WITH PT AND PT VERBALIZED UNDERSTANDING. PT UNABLE TO SIGN PAPERWORK DUE TO BLINDNESS. IV LEFT IN PLACE FOR CONTINUITY OF IV ABX THERAPY. PT HAD NO BELONGINGS TO TAKE BACK WITH HIM. PT DISCHARGE BS WAS 334. PT LEFT IN STABLE CONDITION WITH TRANSPORT TEAM.
--- NOTE | 2019-06-06 19:48 | NUR ---
REPORT GIVEN TO [place] [facility] [place]
== END 2019-06-06 19:15 | DRG 177 ==
LOC: MED 19:55 → MMU 22:06
PROVIDERS: ADMIT General Practice; ATTEND General Practice
DX: J69.0 Pneumonitis due to inhalation of food and vomit (principal); I50.43 Acute on chronic combined systolic (congestive) and diastolic (congestive) heart failure; J96.01 Acute respiratory failure with hypoxia; J44.1 Chronic obstructive pulmonary disease with (acute) exacerbation; L03.116 Cellulitis of left lower limb; N17.9 Acute kidney failure, unspecified; E87.1 Hypo-osmolality and hyponatremia; Z68.41 Body mass index [BMI] 40.0-44.9, adult; E11.21 Type 2 diabetes mellitus with diabetic nephropathy; E11.319 Type 2 diabetes mellitus with unspecified diabetic retinopathy without macular edema; E11.51 Type 2 diabetes mellitus with diabetic peripheral angiopathy without gangrene; E66.9 Obesity, unspecified; H54.8 Legal blindness, as defined in USA; I25.10 Atherosclerotic heart disease of native coronary artery without angina pectoris; E11.65 Type 2 diabetes mellitus with hyperglycemia; D63.8 Anemia in other chronic diseases classified elsewhere; F32.9 Major depressive disorder, single episode, unspecified; I11.0 Hypertensive heart disease with heart failure; Z89.511 Acquired absence of right leg below knee; Z95.1 Presence of aortocoronary bypass graft; Z88.8 Allergy status to other drugs, medicaments and biological substances; Z79.4 Long term (current) use of insulin; Z79.82 Long term (current) use of aspirin; Z79.899 Other long term (current) drug therapy; Z86.718 Personal history of other venous thrombosis and embolism; Z91.14 Patient's other noncompliance with medication regimen; Z89.422 Acquired absence of other left toe(s)
CPT/HCPCS: 36415; 36600; 71045; 71250; 71275; 76770; 78582; 80048; 80053; 80305; 81001; 82150; 82607; 82728; 82746; 82803; 82948; 83036; 83540; 83605; 83690; 83735; 83880; 84100; 84134; 84439; 84443; 84484; 85025; 85045; 85379; 85610; 85730; 87040; 87081; 87086; 87804; 92610; 93005; 94640; 96374; 99291; J0456; J0696; J1644; J1650; J1815; J1940; J2270; J2920; J2930; J3475; J7030; J7060; J7626; Q0092; Q9967

== ENCOUNTER 2019-07-28 14:10 | Inpatient (IN) | payer OTHER, MEDICAID, SELFPAY ==
[~2019-07-28] VITALS: Ht 188 cm; Wt 127.0 kg
[~2019-07-28 14:10] MED LIST: ACET-2619 PO; ASPI-1822 PO; AZIT250T3 PO; BUDE1AER IH; CHLO118S2 TP; FLUO40CA6 PO; FURO-572 PO; INSU100S22 SUBQ; INSU100S5 IJ; LACT10CA1 PO; METH4TAB1 PO; MUPI2CRE22 NS; ROC1PM IV; [UNRECOGNIZED DRUG - CODE] PO
[2019-07-28 14:12] VITALS: BP 124/57
[2019-07-28] MEDS ORDERED: ACETAMINOPHEN EXTRA STRENGTH 500 MG TAB PO ONE (14:40)
[2019-07-28 15:23] LABS: BASOPHILS % (AUTO) 0.1 % (0.0-2.0); EOSINOPHILS # (AUTO) 0.1 K/uL (0-0.4); EOSINOPHILS % (AUTO) 1.3 % (0.0-4.0); HEMATOCRIT 30.8 % (36-52); HEMOGLOBIN 9.6 g/dL (12.0-18.0); LYMPHOCYTES # (AUTO) 0.2 K/uL (2.0-11.5); LYMPHOCYTES % (AUTO) 3.1 % (20.5-51.1); MEAN CORPUSCULAR HEMOGLOBIN 27 pg (27-31); MEAN CORPUSCULAR HGB CONC 31 g/dL (33-37); MEAN CORPUSCULAR VOLUME 88.1 fL (80-94); MONOCYTES # (AUTO) 0.1 K/uL (0.8-1.0); MONOCYTES % (AUTO) 1.2 % (1.7-9.3); NEUTROPHILS # (AUTO) 6.7 K/uL (1.8-7.7); NEUTROPHILS % (AUTO) 94.3 % (42.2-75.2); PLATELET COUNT (AUTO) 114 K/uL (140-450); RED CELL DISTRIBUTION WIDTH 17.6 % (11.6-13.7); WHITE BLOOD COUNT (AUTO) 7.1 K/uL (4.8-10.8)
[2019-07-28 15:29] LABS: ANION GAP 9.6 (8-16); CARBON DIOXIDE 37.3 mmol/L (21-32); CREATININE 1.7 mg/dL (0.6-1.3); POTASSIUM 3.9 mmol/L (3.5-5.1)
[2019-07-28 15:32] LABS: PROTHROMBIN TIME 9.5 secs (10.8-13.4)
[2019-07-28] MEDS ORDERED: INSULIN REGULAR, HUMAN 100 UNIT/ML VIAL SUBQ ONE (15:40)
[2019-07-28] MEDS ORDERED: LEVOFLOXACIN 500 MG/D5W PREMIX 100 ML IV ONE (15:40)
[2019-07-28] MEDS ORDERED: NACL 0.9% 3,000 ML IV ONE (15:40)
[2019-07-28 15:44] LABS: ALBUMIN 2.3 g/dL (3.4-5.0); TOTAL BILIRUBIN 0.5 mg/dL (0.0-1.0)
[2019-07-28] MEDS ORDERED: NACL 0.9% 1,000 ML IV SCH (16:09)
[2019-07-28] MEDS ORDERED: DOCUSATE SODIUM 100 MG GELCAP PO PRN (16:10)
[2019-07-28] MEDS ORDERED: ONDANSETRON 4 MG/2 ML VIAL IM/IVP PRN (16:10)
[2019-07-28] MEDS ORDERED: ACETAMINOPHEN 325 MG TAB PO PRN (16:10)
[2019-07-28] MEDS ORDERED: ALBUTEROL HFA MDI 90 MCG/ACTUATION 8 GM INH PRN (16:15)
[2019-07-28] MEDS ORDERED: DEXTROSE 50% 50 ML SYR IVP PRN (16:15)
[2019-07-28] MEDS ORDERED: INSULIN LISPRO SLIDING SCALE 100 UNITS/ML VIAL SUBQ PRN (16:15)
[2019-07-28] MEDS ORDERED: NACL 0.9% 1,000 ML IV ONE (16:55)
[2019-07-28 17:39] LABS: APPEARANCE,URINE HAZY (CLEAR); BILIRUBIN,URINE NEGATIVE (NEGATIVE); BLOOD, URINE 2+ (NEGATIVE); COLOR,URINE YELLOW (YELLOW); LEUKOCYTE ESTERASE ,URINE NEGATIVE (NEGATIVE); NITRITE, URINE NEGATIVE (NEGATIVE); UGLUCOSE 1+ (NEGATIVE)
[2019-07-28 17:44] LABS: BARBITURATE, URINE NEGATIVE ng/ml (NEG <=200); BENZODIAZEPINE, URINE NEGATIVE ng/mL (NEG <=200); CANNABINOID, URINE NEGATIVE ng/mL (NEG <=50); COCAINE, URINE NEGATIVE ng/mL (NEG <=300); OPIATE, URINE NEGATIVE ng/mL (NEG <=2000); PHENCYCLIDINE SCREEN,URINE NEGATIVE ng/mL (NEG <=25)
[2019-07-28] MEDS ORDERED: methylPREDNISolone SS 40 MG/ML VIAL IVP SCH ×2 (18:00→21:00)
[2019-07-28 18:27] LABS: RBC,URINE 0-5 /HPF (0-5); WBC,URINE NONE SEEN /HPF (0-5)
[2019-07-28] MEDS ORDERED: VANCOMYCIN PER PHARMACY MC PRN (18:30)
[2019-07-28] MEDS ORDERED: MIRT15TA PO (18:47)
[2019-07-28] MEDS ORDERED: INSU100S22 SUBQ (18:48)
[2019-07-28] MEDS ORDERED: MIRTAZAPINE 15 MG TAB PO ONE (19:20)
[2019-07-28] MEDS ORDERED: BUDESONIDE 0.25 MG/2 ML NEBU INH SCH (19:30)
[2019-07-28 20:00] VITALS: BP 97/50
[2019-07-28] MEDS: BLOOD GLUCOSE MONITORING 1 DEV DEV FS SCH ×2 (20:13→20:14)
[2019-07-28] MEDS ORDERED: cefTRIAXone 1,000 MG VIAL ONE (20:21)
[2019-07-28] MEDS: ATORVASTATIN 20 MG TAB PO SCH (20:41)
[2019-07-28] MEDS: INSULIN LANTUS 100 UNITS/ML 10 ML VIAL SUBQ SCH (20:42)
[2019-07-28] MEDS ORDERED: VANCOMYCIN HCL 1.25 GM in DEXTROSE 5% 250 ML IV SCH (21:00)
[2019-07-28] MEDS ORDERED: INSULIN GLARGINE HUM REC ANLOG 40 UNIT SUBQ SCH (21:00)
[2019-07-28] MEDS ORDERED: INSULIN LANTUS 100 UNITS/ML 10 ML VIAL SUBQ SCH (21:00)
[2019-07-29] VITALS: BP 140/67
[2019-07-29 04:00] VITALS: BP 116/45
[2019-07-29] MEDS ORDERED: DEXTROSE 50% 50 ML SYR IVP PRN (04:05)
[2019-07-29] MEDS: LEVOTHYROXINE 0.1 MG TAB PO SCH (05:40)
[2019-07-29] MEDS: LEVOTHYROXINE 0.075 MG TAB PO SCH (05:40)
[2019-07-29 06:03] LABS: FREE T4 (FREE THYROXINE) 0.96 ng/dL (0.76-1.46); MAGNESIUM 1.4 mg/dL (1.8-2.4); PHOSPHORUS 2.3 mg/dL (2.5-4.9); THYROID STIMULATING HORMONE 1.4 uIU/mL (0.34-3.74)
[2019-07-29] MEDS ORDERED: LEVOTHYROXINE 0.025 MG TAB PO SCH (06:30)
[2019-07-29] MEDS ORDERED: LEVOTHYROXINE SODIUM 350 MCG PO SCH (06:30)
[2019-07-29] MEDS: BLOOD GLUCOSE MONITORING 1 DEV DEV FS SCH ×4 (06:32→21:13)
[2019-07-29] MEDS: INSULIN LISPRO SLIDING SCALE 100 UNITS/ML VIAL SUBQ PRN ×4 (06:33→21:17)
[2019-07-29 07:09] LABS: BASOPHILS % (AUTO) 0.5 % (0.0-2.0); EOSINOPHILS # (AUTO) 0.3 K/uL (0-0.4); EOSINOPHILS % (AUTO) 3.7 % (0.0-4.0); HEMATOCRIT 29.7 % (36-52); HEMOGLOBIN 9.3 g/dL (12.0-18.0); LYMPHOCYTES # (AUTO) 0.9 K/uL (2.0-11.5); LYMPHOCYTES % (AUTO) 12.8 % (20.5-51.1); MEAN CORPUSCULAR HEMOGLOBIN 28 pg (27-31); MEAN CORPUSCULAR HGB CONC 31 g/dL (33-37); MEAN CORPUSCULAR VOLUME 88.3 fL (80-94); MONOCYTES # (AUTO) 0.7 K/uL (0.8-1.0); MONOCYTES % (AUTO) 10.7 % (1.7-9.3); NEUTROPHILS % (AUTO) 72.3 % (42.2-75.2); PLATELET COUNT (AUTO) 107 K/uL (140-450); RED BLOOD CELL COUNT(AUTO) 3.37 MIL/uL (4.20-6.10); RED CELL DISTRIBUTION WIDTH 17.5 % (11.6-13.7); WHITE BLOOD COUNT (AUTO) 6.9 K/uL (4.8-10.8)
[2019-07-29 07:36] LABS: CHOL/HDL RATIO 6.2 (1-4.5)
[2019-07-29 08:00] VITALS: BP 135/53
[2019-07-29 08:01] LABS: ALBUMIN 2.1 g/dL (3.4-5.0); ANION GAP 10.1 (8-16); POTASSIUM 4.1 mmol/L (3.5-5.1); TOTAL BILIRUBIN 0.3 mg/dL (0.0-1.0)
[2019-07-29] MEDS ORDERED: FUROSEMIDE 20 MG/2 ML VIAL IVP SCH (09:00)
[2019-07-29] MEDS ORDERED: FLUoxetine 20 MG CAP PO SCH (09:00)
[2019-07-29] MEDS: LACTOBACILLUS RHAMNOSUS GG 1 EACH CAP PO SCH (10:18)
[2019-07-29] MEDS: ASPIRIN 81 MG TAB.CHEW PO SCH (10:18)
[2019-07-29] MEDS: VANCOMYCIN 1,000 MG in NACL 0.9% 250 ML IV SCH ×2 (11:34→23:25)
[2019-07-29 12:00] VITALS: BP 128/50
[2019-07-29 16:00] VITALS: BP 141/65
[2019-07-29] MEDS: MIRTAZAPINE 15 MG TAB PO SCH (17:10)
[2019-07-29 20:00] VITALS: BP 133/76
[2019-07-29] MEDS: ATORVASTATIN 20 MG TAB PO SCH (21:00)
[2019-07-29] MEDS: INSULIN LANTUS 100 UNITS/ML 10 ML VIAL SUBQ SCH (21:15)
[2019-07-30] VITALS: BP 121/64
[2019-07-30 04:00] VITALS: BP 123/69
[2019-07-30] MEDS: LEVOTHYROXINE 0.1 MG TAB PO SCH (06:45)
[2019-07-30] MEDS: BLOOD GLUCOSE MONITORING 1 DEV DEV FS SCH ×4 (06:45→21:32)
[2019-07-30] MEDS: LEVOTHYROXINE 0.075 MG TAB PO SCH (06:45)
[2019-07-30] MEDS: INSULIN LISPRO SLIDING SCALE 100 UNITS/ML VIAL SUBQ PRN ×4 (06:49→21:37)
[2019-07-30 08:00] VITALS: BP 142/82
[2019-07-30] MEDS: ASPIRIN 81 MG TAB.CHEW PO SCH (08:20)
[2019-07-30] MEDS: LACTOBACILLUS RHAMNOSUS GG 1 EACH CAP PO SCH (08:20)
[2019-07-30 08:54] LABS: BASOPHILS % (AUTO) 0.5 % (0.0-2.0); EOSINOPHILS # (AUTO) 0.3 K/uL (0-0.4); EOSINOPHILS % (AUTO) 6.5 % (0.0-4.0); HEMATOCRIT 29.8 % (36-52); HEMOGLOBIN 9.3 g/dL (12.0-18.0); LYMPHOCYTES # (AUTO) 0.9 K/uL (2.0-11.5); LYMPHOCYTES % (AUTO) 19.7 % (20.5-51.1); MEAN CORPUSCULAR HEMOGLOBIN 28 pg (27-31); MEAN CORPUSCULAR HGB CONC 31 g/dL (33-37); MONOCYTES # (AUTO) 0.6 K/uL (0.8-1.0); MONOCYTES % (AUTO) 13.4 % (1.7-9.3); NEUTROPHILS # (AUTO) 2.7 K/uL (1.8-7.7); NEUTROPHILS % (AUTO) 59.9 % (42.2-75.2); PLATELET COUNT (AUTO) 97 K/uL (140-450); RED BLOOD CELL COUNT(AUTO) 3.39 MIL/uL (4.20-6.10); RED CELL DISTRIBUTION WIDTH 17.5 % (11.6-13.7); WHITE BLOOD COUNT (AUTO) 4.5 K/uL (4.8-10.8)
[2019-07-30 09:09] LABS: TRANSFERRIN 218 mg/dL (177-329)
[2019-07-30 09:16] LABS: ALBUMIN 2.2 g/dL (3.4-5.0); ANION GAP 5.7 (8-16); CARBON DIOXIDE 35.6 mmol/L (21-32); CREATININE 1.9 mg/dL (0.6-1.3); POTASSIUM 4.3 mmol/L (3.5-5.1); TOTAL BILIRUBIN 0.3 mg/dL (0.0-1.0)
[2019-07-30 12:00] VITALS: BP 143/59
[2019-07-30 12:06] LABS: FERRITIN 125 ng/mL (30-400)
[2019-07-30 16:00] VITALS: BP 139/72
[2019-07-30] MEDS: MIRTAZAPINE 15 MG TAB PO SCH (17:10)
[2019-07-30 20:00] VITALS: BP 118/44
[2019-07-30] MEDS: ATORVASTATIN 20 MG TAB PO SCH ×2 (21:00→21:33)
[2019-07-30] MEDS ORDERED: INSULIN LANTUS 100 UNITS/ML 10 ML VIAL SUBQ SCH (21:00)
[2019-07-31] VITALS: BP 133/43
[2019-07-31 04:00] VITALS: BP 135/40
[2019-07-31] MEDS: LEVOTHYROXINE 0.1 MG TAB PO SCH (05:39)
[2019-07-31] MEDS: LEVOTHYROXINE 0.075 MG TAB PO SCH (05:40)
[2019-07-31] MEDS: BLOOD GLUCOSE MONITORING 1 DEV DEV FS SCH ×2 (06:23→11:29)
[2019-07-31] MEDS: INSULIN LISPRO SLIDING SCALE 100 UNITS/ML VIAL SUBQ PRN ×2 (06:25→11:34)
[2019-07-31 07:41] LABS: BASOPHILS % (AUTO) 0.8 % (0.0-2.0); EOSINOPHILS # (AUTO) 0.3 K/uL (0-0.4); EOSINOPHILS % (AUTO) 7.3 % (0.0-4.0); HEMATOCRIT 30.3 % (36-52); HEMOGLOBIN 9.6 g/dL (12.0-18.0); LYMPHOCYTES # (AUTO) 0.9 K/uL (2.0-11.5); LYMPHOCYTES % (AUTO) 20.1 % (20.5-51.1); MEAN CORPUSCULAR HEMOGLOBIN 28 pg (27-31); MEAN CORPUSCULAR HGB CONC 32 g/dL (33-37); MEAN CORPUSCULAR VOLUME 87.4 fL (80-94); MONOCYTES # (AUTO) 0.8 K/uL (0.8-1.0); MONOCYTES % (AUTO) 18.2 % (1.7-9.3); NEUTROPHILS # (AUTO) 2.5 K/uL (1.8-7.7); NEUTROPHILS % (AUTO) 53.6 % (42.2-75.2); PLATELET COUNT (AUTO) 105 K/uL (140-450); RED BLOOD CELL COUNT(AUTO) 3.47 MIL/uL (4.20-6.10); RED CELL DISTRIBUTION WIDTH 17.2 % (11.6-13.7); WHITE BLOOD COUNT (AUTO) 4.6 K/uL (4.8-10.8)
[2019-07-31 08:00] VITALS: BP 135/48
[2019-07-31] MEDS: ASPIRIN 81 MG TAB.CHEW PO SCH (08:06)
[2019-07-31] MEDS: LACTOBACILLUS RHAMNOSUS GG 1 EACH CAP PO SCH (08:06)
[2019-07-31 08:50] LABS: ALBUMIN 2.3 g/dL (3.4-5.0); ANION GAP 7.2 (8-16); CARBON DIOXIDE 36.6 mmol/L (21-32); CREATININE 1.8 mg/dL (0.6-1.3); POTASSIUM 3.8 mmol/L (3.5-5.1); TOTAL BILIRUBIN 0.3 mg/dL (0.0-1.0)
[2019-07-31] MEDS ORDERED: VANCOMYCIN 750 MG in DEXTROSE 5% 250 ML IV SCH (09:00)
[2019-07-31] MEDS ORDERED: LACT10CA1 PO (10:12)
[2019-07-31] MEDS ORDERED: SULF-59 PO (10:12)
[2019-07-31 10:26] VITALS: BP 135/48
[2019-07-31] MEDS ORDERED: INSU100S22 SUBQ (10:35)
[2019-07-31] MEDS ORDERED: FURO-572 PO (10:42)
[2019-07-31 12:00] VITALS: BP 144/55
[2019-07-31] MEDS ORDERED: INSULIN REGULAR, HUMAN 100 UNIT/ML VIAL SUBQ ONE (14:15)
[2019-07-31] MEDS ORDERED: INSULIN LISPRO 100 UNITS/ML VIAL SUBQ SCH (15:00)
[2019-07-31] MEDS ORDERED: INSULIN LANTUS 100 UNITS/ML 10 ML VIAL SUBQ SCH (21:00)
== END 2019-07-31 15:00 | DRG 871 ==
LOC: EEVIPCON 14:10 → MED 14:10 → MTU 16:09
PROVIDERS: ADMIT General Practice; ATTEND General Practice
DX: A41.9 Sepsis, unspecified organism (principal); N17.0 Acute kidney failure with tubular necrosis; J69.0 Pneumonitis due to inhalation of food and vomit; J96.01 Acute respiratory failure with hypoxia; L03.116 Cellulitis of left lower limb; J44.1 Chronic obstructive pulmonary disease with (acute) exacerbation; I13.0 Hypertensive heart and chronic kidney disease with heart failure and stage 1 through stage 4 chronic kidney disease, or unspecified chronic kidney disease; I50.20 Unspecified systolic (congestive) heart failure; Z03.818 Encounter for observation for suspected exposure to other biological agents ruled out; E03.9 Hypothyroidism, unspecified; E11.319 Type 2 diabetes mellitus with unspecified diabetic retinopathy without macular edema; E11.51 Type 2 diabetes mellitus with diabetic peripheral angiopathy without gangrene; E11.65 Type 2 diabetes mellitus with hyperglycemia; H54.8 Legal blindness, as defined in USA; F32.9 Major depressive disorder, single episode, unspecified; D63.8 Anemia in other chronic diseases classified elsewhere; I87.2 Venous insufficiency (chronic) (peripheral); E11.22 Type 2 diabetes mellitus with diabetic chronic kidney disease; N18.3 Chronic kidney disease, stage 3 (moderate); E11.36 Type 2 diabetes mellitus with diabetic cataract; I25.10 Atherosclerotic heart disease of native coronary artery without angina pectoris; Z86.718 Personal history of other venous thrombosis and embolism; Z87.891 Personal history of nicotine dependence; Z88.8 Allergy status to other drugs, medicaments and biological substances; Z89.511 Acquired absence of right leg below knee; Z91.19 Patient's noncompliance with other medical treatment and regimen; Z95.1 Presence of aortocoronary bypass graft; Z79.4 Long term (current) use of insulin; Z79.899 Other long term (current) drug therapy; Z89.422 Acquired absence of other left toe(s)
CPT/HCPCS: 36415; 71045; 76770; 80053; 80202; 80305; 81001; 82150; 82306; 82550; 82728; 82948; 83036; 83540; 83605; 83615; 83690; 83735; 83880; 83970; 84100; 84134; 84439; 84443; 84484; 84550; 85025; 85045; 85379; 85610; 85730; 86140; 87040; 87081; 87086; 87804; 93005; 93971; 96365; 96372; 97161-GP; 99291; J0696; J1644; J1815; J1940; J1956; J3370; J7030; J7060; Q0092